=== PATIENT | female | born 1945 | race Caucasian/White ===

== ENCOUNTER 2024-01-21 18:05 | Emergency (ER) | payer MEDICARE ==
[2024-01-21] MEDS: Acetaminophen 500 MG Tab PO ONE (19:04)
[2024-01-21] MEDS: Diphtheria,Pertussis(Acell),Tetanus Vaccine 0.5 ML Syringe IM ONE (19:05)
== END 2024-01-21 19:10 | disposition home or self-care (01) ==
LOC: FB.ED 18:05
DX: S00.01XA Abrasion of scalp, initial encounter (principal); S09.90XA Unspecified injury of head, initial encounter; W01.198A Fall on same level from slipping, tripping and stumbling with subsequent striking against other object, initial encounter
CPT/HCPCS: 99283; A9270

== ENCOUNTER 2024-06-29 08:39 | Emergency (ER) | payer MEDICARE ==
[2024-06-29 09:35] LABS: HEMATOCRIT 39.5 % (34.2-48.2); HEMOGLOBIN 13.3 g/dL (11.4-15.5); MEAN CORPUSCULAR HEMOGLOBIN 30.5 pg (23.9-33.9); MEAN CORPUSCULAR HGB CONC 33.6 g/dL (31.9-34.8); MEAN CORPUSCULAR VOLUME 90.8 fL (76.7-100.5); PLATELET COUNT,PLT 338 x10(3)uL (151-488); RED BLOOD CELL COUNT 4.35 x10(6)uL (3.60-5.20); RED CELL DISTRIBUTION WIDTH 13.7 % (12.3-16.5); WHITE BLOOD CELL COUNT,WBC 10.4 x10-3/uL (3.0-10.3)
[2024-06-29 09:37] LABS: BLOOD UREA NITROGEN,BUN 13 mg/dL (7-18); BUN/CREATININE RATIO 14.4 (9-20); CALCIUM 9.4 mg/dL (8.6-10.2); CARBON DIOXIDE,CO2 25 mmol/L (21-32); CHLORIDE,CL 104 mmol/L (100-110); CREATININE 0.9 mg/dL (0.55-1.02); ESTIMATED GFR 66 mL/min (>60); GLUCOSE RANDOM 119 mg/dL (80-116); POTASSIUM,K 4.3 mmol/L (3.5-5.3); SODIUM,NA 140 mmol/L (135-145)
[2024-06-29] MEDS: Magnesium Hydroxide 400 MG/5 ML Susp 30 ML Cup PO ONE (09:48)
[2024-06-29 10:01] LABS: LYMPHOCYTES PERCENT MAN 8 % (13-37); MONOCYTES PERCENT MAN 2 % (4-12); SEG NEUTROPHILS PERCENT MAN 90 % (46-82); TOXIC GRANULATION MODERATE (NOT SEEN)
[2024-06-29] MEDS: Iopamidol 755 Mg/ML 100 ML Bottle IV SCH (10:30)
== END 2024-06-29 13:19 | disposition home or self-care (01) ==
LOC: FB.ED 08:39
DX: K56.41 Fecal impaction (principal)
CPT/HCPCS: 36415; 74177; 80048; 85025; 99284; A9270; Q9967

== ENCOUNTER 2025-08-18 09:52 | Emergency (ER) | payer MEDICARE ==
[2025-08-18] MEDS ORDERED: Sodium Chloride 0.9% 10 ML Syringe FLUSH PRN (10:06)
[2025-08-18 10:25] LABS: BASOPHILS ABSOLUTE AUTO 0.1 x10-3/uL (0.0-0.1); BASOPHILS PERCENT AUTO 1.0 % (0.2-1.5); EOSINOPHILS ABSOLUTE AUTO 0.1 x10-3/uL (0.0-0.8); EOSINOPHILS PERCENT AUTO 0.9 % (0.6-8.1); LYMPHOCYTES ABSOLUTE AUTO 0.9 x10-3/uL (1.0-4.4); LYMPHOCYTES PERCENT AUTO 15.0 % (18.4-52.1); MEAN PLATELET VOLUME 8.6 fL (7.1-12.4); MONOCYTES ABSOLUTE AUTO 0.4 x10-3/uL (0.3-1.0); MONOCYTES PERCENT AUTO 7.7 % (4.4-15.7); NEUTROPHILS ABSOLUTE AUTO 4.4 x10-3/uL (1.5-6.3); NEUTROPHILS PERCENT AUTO 75.4 % (30.8-76.2); PLATELET COUNT,PLT 253 x10(3)uL (151-488); RED BLOOD CELL COUNT 4.30 x10(6)uL (3.60-5.20); RED CELL DISTRIBUTION WIDTH 13.2 % (12.3-16.5); WHITE BLOOD CELL COUNT,WBC 5.8 x10-3/uL (3.0-10.3)
[2025-08-18] MEDS: Ondansetron 4 MG/2 ML SDV IVPUSH ONE (10:25)
[2025-08-18 10:32] LABS: BLOOD UREA NITROGEN,BUN 19 mg/dL (7-18); CARBON DIOXIDE,CO2 25 mmol/L (21-32); CHLORIDE,CL 105 mmol/L (100-110); CREATININE 0.8 mg/dL (0.55-1.02); EST CRCL DRUG DOSING (CG) 48.72 mL/min; ESTIMATED GFR 76 mL/min (>60); GLUCOSE RANDOM 148 mg/dL (80-116); POTASSIUM,K 3.7 mmol/L (3.5-5.3); SODIUM,NA 140 mmol/L (135-145)
[2025-08-18 10:38] LABS: A/G RATIO 1.1; ALANINE AMINOTRANSFERASE,ALT 18 U/L (12-36); ASPARTATE AMNIOTRANSFERASE,AST 17 IU/L (5-25); BILIRUBIN TOTAL 0.5 mg/dL (0.1-1.3); PROTEIN TOTAL,TP 7.0 g/dL (6.0-8.0)
[2025-08-18 12:23] LABS: GLUCOSE,URINE NORMAL (NORMAL); OCCULT BLOOD,URINE NEGATIVE (NEGATIVE)
[2025-08-18 12:24] LABS: APPEARANCE,URINE SLIGHTLY CLOUDY (CLEAR)
[2025-08-18] MEDS: LORazepam 2 MG/ML SDV IVPUSH ONE (12:58)
== END 2025-08-18 15:00 | disposition home or self-care (01) ==
LOC: FB.ED 09:52
DX: R42 Dizziness and giddiness (principal); F41.9 Anxiety disorder, unspecified; R11.2 Nausea with vomiting, unspecified; E86.0 Dehydration; K21.9 Gastro-esophageal reflux disease without esophagitis; Z79.899 Other long term (current) drug therapy; Z90.49 Acquired absence of other specified parts of digestive tract; Z90.710 Acquired absence of both cervix and uterus
CPT/HCPCS: 36415; 70450; 80053; 81003; 83735; 84484; 85025; 86140; 87428; 93005; 96361; 96374; 96375; 99285; A9270; J2060; J2405; J7040; 93010; 99284